=== PATIENT | male | born 1940 | race Caucasian/White ===

== ENCOUNTER 2016-08-03 10:50 | Emergency (ER) | payer OTHER ==
[~2016-08-03] VITALS: Ht 170.2 cm; Wt 75.7 kg
[2016-08-03] MEDS ORDERED: predniSONE 20 MG TAB PO ONE (11:45)
[2016-08-03 13:40] VITALS: BP 139/75
== END 2016-08-03 14:02 | disposition home or self-care (01) ==
LOC: ER 10:50
DX: G51.0 Bell's palsy (principal); I48.91 Unspecified atrial fibrillation; M19.90 Unspecified osteoarthritis, unspecified site; I10 Essential (primary) hypertension; R51 Headache
CPT/HCPCS: 70450; 93005; 99284; J7512